=== PATIENT | female | born 1995 | race Asian ===

== ENCOUNTER 2021-11-26 13:16 | Observation (INO) | payer OTHER ==
[~2021-11-26] VITALS: Ht 170.2 cm; Wt 108.8 kg
[~2021-11-26 13:16] MED LIST: AMLO10 PO; ATOR10 PO; Aspir 8181 MG PO; HYDCHL25 PO; HYDR10 PO; Keflex500 MG PO; LABE200 PO; LEVSOD25 PO; SPIR25 PO
[2021-11-26 13:44] LABS: BASOPHILS ABSOLUTE AUTO 0.04 K/mm3 (0.00-0.23); BASOPHILS PERCENT AUTO 0 % (0-2); EOSINOPHILS ABSOLUTE AUTO 0.11 K/mm3 (0.00-0.68); EOSINOPHILS PERCENT AUTO 1 % (0-6); Hematocrit 45.2 % (33.0-51.0); Hemoglobin 14.9 g/dL (11.5-16.0); IMMATURE GRAN ABSOLUTE AUTO 0.04 K/mm3 (0.00-0.10); IMMATURE GRAN PERCENT AUTO 0 % (0-1); LYMPHOCYTES ABSOLUTE AUTO 2.68 K/mm3 (0.84-5.20); LYMPHOCYTES PERCENT AUTO 25 % (21-46); MONOCYTES ABSOLUTE AUTO 0.36 K/mm3 (0.16-1.47); MONOCYTES PERCENT AUTO 3 % (4-13); Mean Corpuscular HGB 26.8 pg (26.0-34.0); Mean Corpuscular Volume 81 fL (80-100); Mean Platelet Volume 9.1 fL (9.1-12.4); NEUTROPHILS ABSOLUTE AUTO 7.42 K/mm3 (1.96-9.15); NEUTROPHILS PERCENT AUTO 70 % (41-73); Platelet Count 337 K/mm3 (150-400); RDW Coefficient Variation 12.3 % (11.7-14.2); RDW Standard Deviation 36.5 fL (35.1-46.3); Red Blood Cell Count 5.56 M/mm3 (3.80-5.20); White Blood Cell Count 10.65 K/mm3 (4.00-11.30)
[2021-11-26 14:07] LABS: Albumin, Blood 3.9 g/dL (3.4-5.0); Albumin/Globulin Ratio 1.1 (0.8-1.8); Bilirubin, Total 0.4 mg/dL (0.1-1.0); Calcium, Blood 9.2 mg/dL (8.5-10.1); Creatinine, Blood 2.13 mg/dL (0.40-1.00); Globulin, Blood 3.6 g/dL (2.2-4.0); Total Protein, Blood 7.5 g/dL (6.4-8.2)
[2021-11-26 18:04] LABS: Source, Urine Clean Catch
[2021-11-26 18:12] LABS: Bilirubin, Urine Neg (Neg); Blood, Urine 1+ (Neg); Glucose Qualitative, Urine Neg (Neg); Ketones, Urine Neg (Neg); Leukocyte Esterase, Urine Neg (Neg); Nitrite, Urine Neg (Neg); Protein, Urine 4+ (Neg); Urobilinogen, Urine NORM (Normal)
[2021-11-26 18:24] LABS: U Amphetamine Screen Not Detected; U Barbituate Screen Not Detected; U Benzodiazapine Screen Not Detected; U Buprenorphine Screen Not Detected; U Cannabinoids Screen Not Detected; U Cocaine Screen Not Detected; U Methadone Screen Not Detected; U Methamphetamine Screen Not Detected; U Opiates Screen Not Detected; U Oxycodone Screen Not Detected; U Phencyclidine Screen Not Detected; U Propoxyphene Screen Not Detected
[2021-11-26 18:32] LABS: Appearance, Urine Hazy (Clear); Color, Urine Pale Yellow (P-Yellow)
[2021-11-26] MEDS ORDERED: ZOLOFT25 MG PO (18:38)
[2021-11-26] MEDS ORDERED: CATAPRES-TTS 31 EAC2 TOP (18:38)
[2021-11-26 18:40] LABS: Bacteria Mod /hpf; Red Blood Cells, Urine 0-2 /hpf (0-2); Squamous Epithelial Cells Rare /hpf (Few); White Blood Cells, Urine 0-2 /hpf (0-5)
[2021-11-27 03:54] LABS: Albumin, Blood 3.6 g/dL (3.4-5.0); Albumin/Globulin Ratio 1.1 (0.8-1.8); Bilirubin, Total 0.7 mg/dL (0.1-1.0); Bun/Creatinine Ratio 13.6 (12.0-20.0); Calcium, Blood 8.8 mg/dL (8.5-10.1); Creatinine, Blood 2.13 mg/dL (0.40-1.00); Globulin, Blood 3.2 g/dL (2.2-4.0); Potassium, Blood 3.4 mmol/L (3.5-5.5); Total Protein, Blood 6.8 g/dL (6.4-8.2)
--- NOTE | 2021-11-27 05:46 | NUR ---
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 PT ARRIVED TO THE UNIT W SBP >200 SO PROVIDER CONTATED WHO GAVE ORDERS FOR ADDITIONAL NORVASC AND A NOTIFY ORDER TO KEEP SBP <200. AFTER PT GIVEN THE ADDITIONAL 5MG NORVASC AND 0.1MG CLONIDINE HER BP BEGAN TO LOWER. PT'S BP REMAINED STABLE FOR MUCH OF THE SHIFT AND AGAIN BEGAN TO ELEVATE THIS AM SO APPROX 0345 PT GIVEN IV HYDRALAZINE WHICH BROUGHT HER BP BACK DOWN. PT REPORTED MINOR HEADACHE ON ARRIVAL WHICH RESOLVED W PRN TYLENOL. PT HAVING LOW URINE OUTPUT THIS SHIFT SEE I&O'S FOR DETAILS. PT DENIED ANY CP OR PRESSURE THIS SHIFT. PT ABLE TO EAT A SANDWHICH W NO NAUSEA THIS SHIFT. PT SLEEPING COMFORTABLY W CALL LIGHT WITHIN REACH FOR MUCH OF THE NIGHT. TELE SHOWING SR IN THE 80'S. WILL REPORT TO ONCOMING RN.
[2021-11-27 08:32] LABS: Magnesium, Blood 2.3 mg/dL (1.6-2.4); Thyroid Stimulating Hormone 2.14 uIU/mL (0.360-4.800)
== END 2021-11-27 14:27 | disposition home or self-care (01) ==
LOC: ER 13:16 → PCU 13:17
PROVIDERS: Family Medicine; Nurse Practitioner Acute Care; Physician Assistant; ADMIT Internal Medicine
DX: I16.0 Hypertensive urgency (principal); N17.9 Acute kidney failure, unspecified; I12.9 Hypertensive chronic kidney disease with stage 1 through stage 4 chronic kidney disease, or unspecified chronic kidney disease; N18.30 Chronic kidney disease, stage 3 unspecified; E78.5 Hyperlipidemia, unspecified; E03.9 Hypothyroidism, unspecified; G47.33 Obstructive sleep apnea (adult) (pediatric); F41.9 Anxiety disorder, unspecified; E66.01 Morbid (severe) obesity due to excess calories; Z88.8 Allergy status to other drugs, medicaments and biological substances; Z79.82 Long term (current) use of aspirin; Z79.899 Other long term (current) drug therapy
CPT/HCPCS: 36415; 70450; 71045; 80053; 81001; 83735; 84443; 84484; 85025; 87086; 93005; 93010; 96365; 96366; 96375; 99285-25; A9270; G0378; J0360; J2405; J7030; J7050